=== PATIENT | female | born 1955 | race Two or more races ===

== ENCOUNTER 2024-01-14 17:55 | Inpatient (IN) | payer MEDICARE, MEDICAID ==
[~2024-01-14] VITALS: Ht 157.5 cm; Wt 79.3 kg
[~2024-01-14 17:55] MED LIST: ADVAIR; LEVO250T19; METHYLPREDNISOLONE; PROMETHAZINE; VENTOLIN
[2024-01-14 20:19] LABS: Basophils # (auto) 0.1 10 ^3/uL (0-0.2); Basophils % (auto) 0.5 % (0.0-2.0); Eosinophils # (auto) 0 10 ^3/uL (0-0.8); Eosinophils % (auto) 0.4 % (0.0-7.0); Hematocrit 41.9 % (36.0-46.0); Hemoglobin 14.2 g/dL (12.2-16.2); Lymphocytes # (auto) 1.4 10 ^3/uL (0.4-5.4); Mean Corpuscular Hemoglobin 31.5 pg (28.0-32.0); Mean Corpuscular Hgb Conc. 33.9 g/dL (32.0-36.0); Mean Corpuscular Volume 92.7 fL (80.0-100.0); Monocytes # (auto) 0.4 10 ^3/uL (0-1.3); Monocytes % (auto) 3.5 % (0.0-12.0); Neutrophils # (auto) 8.6 10 ^3/uL (1.6-8.6); Neutrophils % (auto) 82.6 % (37.0-80.0); Nucleated Red Blood Cells % 0.1 %; Red Blood Cells 4.52 10^6/uL (4.0-5.20); Red Cell Distribution Width 13.9 % (11.8-14.3); White Blood Cell 10.5 10^3/uL (4.4-10.8)
[2024-01-14 20:53] LABS: Alanine Aminotransferase 23 U/L (7-40); Albumin 4.5 g/dL (3.2-4.8); Alkaline Phosphatase 65 U/L (46-116); Anion Gap 9 (5-15); Aspartate Aminotransferase 21 U/L (13-40); BUN/Creatinine Ratio 31.7 (10.0-20.0); Bilirubin, Total 0.5 mg/dL (0.2-1.0); Blood Urea Nitrogen 19 mg/dL (9-23); Calcium 9.8 mg/dL (8.7-10.4); Carbon Dioxide 21 mmol/L (20-30); Chloride 105 mmol/L (98-107); Glucose 114 mg/dL (74-106); Lipase 60 U/L (12-53); Potassium 4.4 mmol/L (3.5-5.1); Sodium 135 mmol/L (136-145); Total Protein 7.4 g/dL (5.7-8.2)
[2024-01-14] MEDS ORDERED: HYDROcodone-ACET 5/325MG TAB PO PRN (23:00)
[2024-01-14] MEDS ORDERED: ACETAMINOPHEN 325 MG TAB PO PRN (23:00)
[2024-01-14] MEDS ORDERED: ONDANSETRON HCL 4 MG/2 ML VIAL IV PRN (23:00)
[2024-01-14] MEDS ORDERED: MORPHINE SULFATE INJ 2 MG/ml SYRG IV PRN (23:00)
[2024-01-14 23:18] VITALS: BP 140/63; PULSE 81; RESP 16; O2SAT 95
[2024-01-15] VITALS (11 sets, daily range): BP systolic 105–128; BP diastolic 60–72; PULSE 62–91; RESP 16–20; TEMP 97.3–98.6; O2SAT 92–99
[2024-01-15] MEDS: ALBUTEROL SULF 2.5 MG/0.5ML(0.5%) NEB SOLN NEB PRN (05:15)
[2024-01-15] MEDS ORDERED: MONT4CHW74 PO (05:53)
[2024-01-15 06:22] LABS: Basophils # (auto) 0 10 ^3/uL (0-0.2); Basophils % (auto) 0.5 % (0.0-2.0); Eosinophils # (auto) 0.3 10 ^3/uL (0-0.8); Hematocrit 41.6 % (36.0-46.0); Hemoglobin 14.1 g/dL (12.2-16.2); Lymphocytes # (auto) 3.3 10 ^3/uL (0.4-5.4); Lymphocytes % (auto) 31.3 % (10.0-50.0); Mean Corpuscular Hemoglobin 31.5 pg (28.0-32.0); Mean Corpuscular Hgb Conc. 34.1 g/dL (32.0-36.0); Mean Corpuscular Volume 92.6 fL (80.0-100.0); Monocytes # (auto) 0.9 10 ^3/uL (0-1.3); Monocytes % (auto) 8.1 % (0.0-12.0); Neutrophils % (auto) 57.1 % (37.0-80.0); Nucleated Red Blood Cells % 0.1 %; Red Blood Cells 4.49 10^6/uL (4.0-5.20); Red Cell Distribution Width 13.9 % (11.8-14.3); White Blood Cell 10.6 10^3/uL (4.4-10.8)
[2024-01-15 06:43] LABS: Alanine Aminotransferase 18 U/L (7-40); Albumin 4.4 g/dL (3.2-4.8); Alkaline Phosphatase 64 U/L (46-116); Anion Gap 8 (5-15); Aspartate Aminotransferase 10 U/L (13-40); BUN/Creatinine Ratio 20.9 (10.0-20.0); Blood Urea Nitrogen 14 mg/dL (9-23); Calcium 9.7 mg/dL (8.7-10.4); Carbon Dioxide 25 mmol/L (20-30); Chloride 105 mmol/L (98-107); Glucose 95 mg/dL (74-106); Potassium 3.4 mmol/L (3.5-5.1); Sodium 138 mmol/L (136-145)
[2024-01-15 06:44] LABS: Bilirubin, Total 0.7 mg/dL (0.2-1.0); Total Protein 7.3 g/dL (5.7-8.2)
[2024-01-15 08:49] LABS: Triglycerides 103 mg/dL (< 150)
[2024-01-15 08:50] LABS: Blood Alcohol < 3.0 mg/dL (<10); Magnesium 2.3 mg/dL (1.6-2.6)
[2024-01-15 09:24] LABS: Urine Bacteria None Seen /hpf (None Seen)
[2024-01-15 09:41] LABS: Urine Blood Negative /uL (Negative); Urine Clarity Clear (Clear); Urine Color Colorless (Yellow); Urine Protein, UAD Negative (Negative); Urine Specific Gravity 1.004 (1.001-1.035); Urine Urobilinogen Normal (Negative); Urine WBC <1 /hpf (0 - 5)
[2024-01-15 09:46] LABS: Amphetamine Screen, Urine Neg (NEGATIVE); Barbiturate Scree,Urine Neg (NEGATIVE); Benzodiazephine Screen, Urine Neg (NEGATIVE); Cocaine Screen, Urine Neg (NEGATIVE)
[2024-01-15 09:47] LABS: Cannabinoid Screen, Urine Neg (NEGATIVE); Opiate Scree,Urine Neg (NEGATIVE); Phencyclidine Screen, Urine Neg (NEGATIVE)
[2024-01-15] MEDS: PANTOPRAZOLE 40 MG/10 ML VIAL INJ IV SCH (10:52)
[2024-01-15 12:13] LABS: Lipase 57 U/L (12-53)
[2024-01-15] MEDS: POTASSIUM CHL 20 Meq TABLET PO ONE (17:02)
[2024-01-16] VITALS (7 sets, daily range): BP systolic 108–153; BP diastolic 52–87; PULSE 62–94; RESP 16–18; TEMP 97.8–98.8; O2SAT 94–97
[2024-01-16 07:51] LABS: Calcium 9.7 mg/dL (8.7-10.4); Chloride 107 mmol/L (98-107); Potassium 3.8 mmol/L (3.5-5.1); Sodium 139 mmol/L (136-145)
[2024-01-16 07:52] LABS: Anion Gap 8 (5-15); Carbon Dioxide 24 mmol/L (20-30)
[2024-01-16 07:57] LABS: BUN/Creatinine Ratio 14.1 (10.0-20.0); Blood Urea Nitrogen 10 mg/dL (9-23); Glucose 102 mg/dL (74-106)
[2024-01-16 07:58] LABS: Magnesium 2.5 mg/dL (1.6-2.6)
[2024-01-16] MEDS: PANTOPRAZOLE 40 MG/10 ML VIAL INJ IV SCH (09:13)
[2024-01-17] VITALS (8 sets, daily range): BP systolic 102–139; BP diastolic 46–70; PULSE 72–76; RESP 16–18; TEMP 36.8; O2SAT 92–97
[2024-01-17 08:06] LABS: AFP Serum Tumor Marker 2.5 ng/mL (0.0-9.2); Cancer Antigen (CA) 125 6.5 U/mL (0.0-38.1)
[2024-01-17] MEDS ORDERED: LOPERAMIDE HCL 2 MG CAP/TAB PO PRN (09:45)
[2024-01-17] MEDS ORDERED: levoFLOXacin 500 MG TAB PO SCH (10:00)
[2024-01-17] MEDS ORDERED: METR-344 PO (12:42)
[2024-01-17] MEDS ORDERED: LEVO500T91 PO (12:42)
[2024-01-17] MEDS: metroNIDAZOLE 500 MG TAB PO SCH (16:00)
[2024-01-17] MEDS: levoFLOXacin 500 MG TAB PO ONE (16:25)
[2024-01-18] MEDS ORDERED: levoFLOXacin 500 MG TAB PO SCH (10:00)
== END 2024-01-17 17:05 | disposition home or self-care (01) | DRG 392 ==
LOC: ER 17:55 → OVERFLOW 23:10 → WEST WING 01-15 02:16
PROVIDERS: ADMIT Internal Medicine; ATTEND Internal Medicine
DX: K52.9 Noninfective gastroenteritis and colitis, unspecified (principal); E87.6 Hypokalemia; J45.909 Unspecified asthma, uncomplicated; K76.0 Fatty (change of) liver, not elsewhere classified; E66.9 Obesity, unspecified; Z68.32 Body mass index [BMI] 32.0-32.9, adult
CPT/HCPCS: 36415; 74176; 76705; 78226; 80048; 80053; 80307; 80320; 81001; 82105; 82270; 82378; 83036; 83690; 83735; 84443; 84478; 84484; 85025; 85048; 86038; 86301; 86304; 87493; 94640; C9113; G0378; J7042